=== PATIENT | female | born 1950 | race Caucasian/White ===

== ENCOUNTER 2019-04-16 05:07 | Observation (INO) ==
--- NOTE | 2019-04-11 10:28 | EKG Report ---
Test Performed on : 04/11/2019 10:01:39 AM Test Reason : PAT Blood Pressure : / mmHG Vent. Rate : 078 BPM Atrial Rate : 078 BPM P-R Int : 178 ms QRS Dur : 082 ms QT Int : 386 ms P-R-T Axes : 074 045 048 degrees QTc Int : 440 ms Sinus rhythm. with occasional premature ventricular complexes. Otherwise normal ECG No previous ECGs available Confirmed by Argelia RHODES, Oleksandr Morocho ([id number]) on 04/11/2019 5:09:56 PM
[2019-04-11 10:36] LABS: BASO# 0.01 X1000 (0.0-0.2); BASO% 0.2 % (0.0-0.8); EOS# 0.03 X1000 (0.0-0.7); EOS% 0.5 % (0.0-10.0); HEMATOCRIT 41.3 % (37.0-47.0); HEMOGLOBIN 13.5 g/dL (12.0-16.0); LYMPH# 1.94 X1000 (1.2-3.4); LYMPH% 34.2 % (20.5-51.1); MCH 32.9 PG (27-31); MCHC 32.7 g/dL (33-37); MCV 100.7 FL (81-99); MONO# 0.65 X1000 (0.11-0.59); MONO% 11.4 % (1.7-9.3); MPV 10.5 FL (7.4-10.4); NEUT# 3.05 X1000 (1.4-6.5); NEUT% 53.7 % (42.2-75.2); PLT 235 X1000 (130-400); RDW 12.4 % (11.5-14.5); WBC 5.68 X1000 (4.8-10.8)
[2019-04-16] MEDS ORDERED: LR 1,000 ML ONE (05:47)
[2019-04-16] MEDS ORDERED: KEFZOL 1 GM/D5W 1 GM/50 ML IVPB ONE (05:47)
[2019-04-16] MEDS ORDERED: FENTANYL ONE (05:58)
[2019-04-16] MEDS ORDERED: DIPRIVAN 1% ONE (05:58)
[2019-04-16] MEDS ORDERED: METHYLENE BLUE 0.5% ONE (06:45)
[2019-04-16] MEDS ORDERED: MARCAINE 0.25% PF/EPI 1:200,000 ONE (06:45)
[2019-04-16] MEDS ORDERED: QUELICIN (DOSE) ONE (07:22)
[2019-04-16] MEDS ORDERED: XYLOCAINE-MPF 2% ONE (07:22)
[2019-04-16] MEDS ORDERED: ZOFRAN ONE (07:23)
[2019-04-16] MEDS ORDERED: DECADRON ONE (07:23)
[2019-04-16] MEDS ORDERED: MOTRIN PO PRN (08:55)
[2019-04-16] MEDS ORDERED: ZOFRAN IV PRN (08:55)
[2019-04-16] MEDS ORDERED: NORCO-5 PO PRN (08:56)
[2019-04-16] MEDS: DILAUDID ONE ×2 (09:16→09:19)
[2019-04-16] MEDS ORDERED: LR 500 ML ONE (09:16)
[2019-04-16] MEDS ORDERED: NORCO-5 ONE (09:29)
--- NOTE | 2019-04-16 10:17 | OPERATIVE NOTE ---
PROCEDURE DATE: 04/16/2019 PREOPERATIVE DIAGNOSIS: Right breast cancer, upper outer quadrant. POSTOPERATIVE DIAGNOSIS: Right breast cancer, upper outer quadrant. PRINCIPAL PROCEDURES: 1. Injection of periareolar blue dye for identification of right axillary sentinel lymph node. 2. Right total mastectomy. 3. Right axillary sentinel lymph node biopsy x1. SURGEON: Cheyanne Schwab MD. ANESTHESIA: General. ESTIMATED BLOOD LOSS: 50 mL. DRAINS: Two #10 flat Heriberto-Diaz drains. INDICATIONS: Ms. Christina Mcbride is a 69-year-old, white female who has right breast cancer of the upper outer quadrant of her breast. It was diagnosed using ultrasound-guided core needle biopsy. She is ER positive, IA positive, HER2 negative. We discussed surgical treatment options and she has chosen a total mastectomy with sentinel lymph node biopsy. FINDINGS: We removed the skin overlying the tumor, upper outer quadrant. Our mastectomy wound was oriented obliquely. This tumor was not attached to the underlying pectoralis major muscle. We felt we had a thorough mastectomy. We identified one sentinel lymph node in the right axilla. It was small. It was stained blue and had a 10 second count of 21,000 once it was removed from the axilla. Once the sentinel node was removed from the axilla, the counts in the axilla in vivo decreased dramatically. On palpation of the remainder of the right axilla, there were no abnormally enlarged lymph nodes palpated. DESCRIPTION OF PROCEDURE: The patient underwent injection by nuclear medicine prior to surgery of her right breast so that we could identify her right axillary sentinel lymph node. She was then taken to the operating room where she received general anesthesia and was intubated. Her right arm was placed out to her side. Her right breast was prepped and draped within a sterile field. She did receive Ancef prophylactically. I marked an elliptical oblique incision for her mastectomy which encompassed her tumor and the skin overlying it. It also encompassed the nipple- areolar complex. I injected 5 mL of methylene blue in the subcutaneous tissue in the area that was going to be removed laterally with the total mastectomy. This was also to help identify the right axillary sentinel lymph node. I then made my incision in the previous markings on the skin to perform the total mastectomy using a 10 blade scalpel. The cautery was then used for the rest of the dissection. We created a flap superiorly to the clavicle, medial to the sternum, and inferior to the inframammary fold. I then removed the breast from medial to lateral off the pectoralis major muscle, again using cautery. As we encountered bleeding, we made sure that we controlled it using the cautery and forceps. Before removing the breast from the axillary contents, we identified the sentinel lymph node and I removed it in its entirety using cautery. It was stained blue and had high 10 second counts outside the axilla. It was sent down to pathology for frozen section as sentinel lymph node #1. The pathology reported that it was negative for tumor and we did not dissect the right axilla any further. On palpation of the right axilla, there were no other palpably enlarged or abnormal lymph nodes. I removed the lateral breast tissue off the axillary contents and it was sent to the pathologist for permanent section. Again, we took time to thoroughly irrigate the area of operation and make sure all bleeding was controlled. I placed two 10 flat Heriberto-Diaz drains within our wound. One was within the right axilla and one was under the flaps. They were brought out through separate stab incisions, inframammary fold, and secured to the skin with a 3-0 nylon stitch. I then closed the wound in layers. First layer was 3-0 popoff Vicryl stitches to close the subcutaneous tissue. Then I used a 4-0 Monocryl subcuticular stitch to close the skin. Dressings were applied. The SOFIA drains were hooked to bulb suction. Plans are for her to go to the recovery room and then be hospitalized overnight. cc: MD Anson West MD Belinda Maples
[2019-04-16] MEDS ORDERED: TYLENOL PO PRN (12:38)
[2019-04-16] MEDS ORDERED: MELATONIN PO SCH (21:00)
[2019-04-16 21:37] LABS: URINE SOURCE CLEAN CATCH
[2019-04-16 22:32] LABS: BILIRUBIN URINE NEGATIVE (NEGATIVE); BLOOD URINE NEGATIVE (NEGATIVE); COLOR YELLOW; GLUCOSE URINE NEGATIVE (NEGATIVE); KETONE URINE 10 mg/dL (NEGATIVE); LEUKOCYTES URINE NEGATIVE (NEGATIVE); NITRITE URINE NEGATIVE (NEGATIVE); PROTEIN URINE NEGATIVE (NEGATIVE); SP GRAVITY URINE 1.018; TURBIDITY URINE CLEAR (CLEAR); UROBILINOGEN URINE NORMAL (NORMAL)
[2019-04-16 22:33] LABS: UR EPITHELIAL CELLS <10 /HPF (<10); URINE BACTERIA NEGATIVE /HPF; URINE RBC <10 /HPF (<10); URINE WBC <10 /HPF (<10)
[2019-04-17] MEDS ORDERED: CELEXA PO SCH (09:00)
[2019-04-17] MEDS ORDERED: PRINIVIL PO SCH (09:00)
[2019-04-17] MEDS ORDERED: SYNTHROID PO SCH (09:00)
[2019-04-17] MEDS ORDERED: LIPITOR PO SCH (09:00)
[2019-04-17] MEDS ORDERED: CLARITIN PO SCH (09:00)
[2019-04-17] MEDS ORDERED: PNEUMOVAX 23 IM ONE (11:00)
[2019-04-17 12:02] VITALS: BP 124/43
--- NOTE | 2019-04-17 20:12 | DISCHARGE SUMMARY ---
ADMISSION DATE: 04/16/2019 DISCHARGE DATE: 04/17/2019 ADMITTING DIAGNOSIS: Right breast cancer, upper outer quadrant. DISCHARGE DIAGNOSIS: Right breast cancer, upper outer quadrant. PRINCIPAL PROCEDURES: 1. Right total mastectomy. 2. Right sentinel lymph node biopsy, 04/16/2019. DISCHARGE DIET: Regular. DISCHARGE DISPOSITION: She will return to our outpatient offices this coming Monday for removal of her SOFIA drains. DISCHARGE MEDICATIONS: She is to return to her home medications. DISCHARGE DISABILITY: Full. HOSPITAL COURSE: Ms. Christina Mcbride is a 69-year-old white female who in [place] was diagnosed with right breast cancer using ultrasound-guided core needle biopsy. We discussed surgical treatment options and she chose a total mastectomy with right sentinel lymph node biopsy. She was admitted on the day of surgery and nuclear Medicine came and injected her right breast with radioactive colloid so that we could identify her right axillary sentinel lymph node using the Navigator. She was taken to the operating room, where her right chest and axilla were prepped and draped within a sterile field. I injected 5 mL of methylene blue in addition to what nuclear medicine injected into her right breast so that we could find her right axillary sentinel lymph node. I marked our elliptical incision which encompassed this tumor and the skin overlying it. It also encompassed the nipple-areolar complex. We did a right total mastectomy. We found one sentinel node that was blue and had a 10 second count of over 21,000. With removal of this sentinel node, the counts in the right axilla decreased dramatically. On palpation of the right axilla, there was no other abnormally palpable lymph nodes. We did not do a completion dissection of the right axilla. Frozen section suggested that the lymph node was negative for cancer. Two SOFIA drains were left at the time of surgery. I did not use skin clips, but all sutures were placed underneath the skin and will dissolve on their own. Dressings were applied. She went to the recovery room and then to [address] [place] [address] where we felt that her postoperative convalescence was normal. On postop day 1, she is awake. She has moved around the room. She was tolerating a regular diet. Drainage from her SOFIA drains were acceptable and there was no palpable hematoma underneath her mastectomy flaps. I discussed the care of her wound and her SOFIA drains at the bedside prior to her discharge and she will return to our outpatient offices this coming Monday for wound check and removal of her drains. She knows to contact us with any problems. cc: Cheyanne Schwab MD
[2019-04-17] MEDS ORDERED: PERIDEX MT SCH (21:00)
== END 2019-04-17 13:02 | disposition home or self-care (01) ==
LOC: NM 05:07 → 4N 05:07 → OPS 05:07
PROVIDERS: ADMIT Surgery; ATTEND Surgery
CPT/HCPCS: 38792; 81001; 85025; 88307; 88331; 90732; 93005; 93010; 94799; A9270; A9520; J0330; J0690; J1100; J1170; J2405; J3010; J7120; Q9968